=== PATIENT | male | born 1945 | race Caucasian/White ===

== ENCOUNTER 2018-09-10 12:19 | Emergency (ER) | payer OTHER ==
[2018-09-10] MEDS ORDERED: TETANUS/DIPHTHERIA TOXOID [ADULT] 0.5 ML VIAL IM ONE (13:11)
[2018-09-10] MEDS ORDERED: OCTYL 2-CYANOACRYLATE 1 EACH TP ONE (13:37)
== END 2018-09-10 14:57 | disposition home or self-care (01) ==
LOC: EDH 12:19
DX: S61.011A Laceration without foreign body of right thumb without damage to nail, initial encounter (principal); S68.021A Partial traumatic metacarpophalangeal amputation of right thumb, initial encounter; W27.4XXA Contact with kitchen utensil, initial encounter; Y93.89 Activity, other specified; Y92.89 Other specified places as the place of occurrence of the external cause; Y99.8 Other external cause status
CPT/HCPCS: 12001; 90714